=== PATIENT | female | born 1965 | race Caucasian/White ===

== ENCOUNTER 2023-03-11 07:15 | Inpatient (IN) | payer OTHER ==
[2023-03-04 11:51] LABS: BASOPHILS % (AUTO) 0.6 % (0.0-2.0); EOSINOPHILS # (AUTO) 0.1 K/uL (0.0-0.4); HEMATOCRIT 42.5 % (36-48); HEMOGLOBIN 13.6 g/dL (12.0-16.0); LYMPHOCYTES # (AUTO) 1.5 K/uL (1.0-5.5); LYMPHOCYTES % (AUTO) 29.2 % (20.5-51.5); MEAN CORPUSCULAR HEMOGLOBIN 26 pg (27-31); MEAN CORPUSCULAR HGB CONC 32 % (32-36); MEAN CORPUSCULAR VOLUME 81 fL (79.0-98.0); MONOCYTES # (AUTO) 0.3 K/uL (0.0-1.0); MONOCYTES % (AUTO) 6.4 % (1.7-9.3); NEUTROPHILS # (AUTO) 3.1 K/uL (1.8-7.7); NEUTROPHILS % (AUTO) 60.8 % (40.0-70.0); PLATELET COUNT (AUTO) 308 K/uL (130-430); RED BLOOD CELL COUNT(AUTO) 5.27 MIL/uL (4.2-6.2); RED CELL DISTRIBUTION WIDTH 13.9 % (9.0-15.0)
[2023-03-04 12:09] LABS: PROTHROMBIN TIME 10.2 SECS (9.5-12.5)
[2023-03-04 12:34] LABS: ALBUMIN 3.9 g/dL (3.4-4.8); CALCIUM 9.1 mg/dL (8.4-11.0); CREATININE 0.65 mg/dL (0.55-1.30); HEMOGLOBIN A1C 6.51 % (<5.7); POTASSIUM 3.9 mmol/L (3.5-5.1); TOTAL BILIRUBIN 0.5 mg/dL (0.0-1.0)
[~2023-03-11] VITALS: Ht 157.5 cm; Wt 81.6 kg
[2023-03-11] MEDS ORDERED: CELECOXIB 200 MG CAPSULE PO ONE (07:45)
[2023-03-11] MEDS ORDERED: ACETAMINOPHEN 500 MG TABLET PO ONE (07:45)
[2023-03-11] MEDS ORDERED: TRANEXAMIC ACID 1,000 MG/10 ML VIAL IV ONE (07:45)
[2023-03-11] MEDS ORDERED: CEFAZOLIN SOD 2 GM in D5W 50 ML IV ONE (07:45)
[2023-03-11] MEDS ORDERED: oxyCODONE HCL 10 MG TAB.ER.12H PO ONE ×2 (07:45→09:47)
[2023-03-11] MEDS ORDERED: GABAPENTIN 300 MG CAPSULE PO ONE (07:45)
[2023-03-11] MEDS ORDERED: SCOPOLAMINE HYDROBROMIDE 1 MG PATCH .72 H (TRANSDERM-SCOP) TD ONE ×2 (07:45→07:58)
[2023-03-11] MEDS ORDERED: ACETAMINOPHEN 325 MG TABLET ONE (07:58)
[2023-03-11] MEDS ORDERED: CELECOXIB 200 MG CAPSULE ONE (07:59)
[2023-03-11] MEDS ORDERED: GABAPENTIN 300 MG CAPSULE ONE (08:05)
[2023-03-11] MEDS ORDERED: VANCOMYCIN HCL 1000 MG/VIAL IV ONE (10:15)
[2023-03-11] MEDS ORDERED: TRANEXAMIC ACID 1,000 MG/10 ML VIAL ONE (10:15)
[2023-03-11] MEDS ORDERED: ONDANSETRON HCL 4 MG/2 ML VIAL ONE (10:15)
[2023-03-11] MEDS ORDERED: BUPIVACAINE /PF 0.5% 30 ML VIAL ONE (10:15)
[2023-03-11] MEDS ORDERED: MIDAZOLAM HCL/PF 2 MG/2 ML SYRINGE ONE (10:15)
[2023-03-11] MEDS ORDERED: ROPIVACAINE HCL/PF 5 MG/ML 0.5% 30 ML VIAL ONE (10:15)
[2023-03-11] MEDS ORDERED: DEXAMETHASONE SOD PHOSPHATE 4 MG/ML VIAL ONE (10:15)
[2023-03-11] MEDS ORDERED: NS 1000 ML IV.SOLN IV ONE (10:15)
[2023-03-11] MEDS ORDERED: NS IRRIG SOLN 1000 ML IR ONE (10:15)
[2023-03-11] MEDS ORDERED: ePHEDrine sulfate 50 MG/ML VIAL ONE (10:15)
[2023-03-11] MEDS ORDERED: MORPHINE SULFATE 10MG/10ML PF AMP ONE ×2 (10:15)
[2023-03-11] MEDS ORDERED: WATER FOR IRRIGATION,STERILE 1,000 ML IRRIG.SOLN IR ONE (10:15)
[2023-03-11] MEDS ORDERED: METF-379 PO (10:32)
[2023-03-11] MEDS ORDERED: LIP80 PO (10:32)
[2023-03-11] MEDS ORDERED: VIT1CAPS25 PO (10:32)
[2023-03-11] MEDS ORDERED: EZET10TA30 PO (10:32)
[2023-03-11] MEDS ORDERED: VIT1TABL67 PO (10:32)
[2023-03-11] MEDS ORDERED: DIPHENHYDRAMINE HCL 25 MG CAPSULE PO PRN (10:45)
[2023-03-11] MEDS ORDERED: NALOXONE HCL 0.4 MG/ML AMP (NARCAN) IVP PRN ×3 (10:45→11:15)
[2023-03-11] MEDS ORDERED: BISACODYL 10 MG/SUPPOSITORY RC PRN (10:45)
[2023-03-11] MEDS ORDERED: LACTULOSE 20 GM/30 ML UDC PO PRN (10:45)
[2023-03-11] MEDS ORDERED: NALOXONE HCL 2 MG/2 ML SYR IVP PRN (10:45)
[2023-03-11] MEDS ORDERED: METOCLOPRAMIDE HCL 10 MG/2 ML VIAL IVP PRN ×2 (10:45→11:15)
[2023-03-11] MEDS ORDERED: HYDROmorphone 1 MG/ML INJ. CARTRIDGE IVP PRN ×5 (11:00→11:15)
[2023-03-11] MEDS ORDERED: LORATADINE 10 MG TABLET PO PRN (11:00)
[2023-03-11] MEDS ORDERED: traMADol HCL HCL 50 MG TABLET (ULTRAM) PO PRN (11:00)
[2023-03-11] MEDS ORDERED: oxyCODONE HCL 5 MG TABLET PO PRN ×2 (11:00)
[2023-03-11] MEDS ORDERED: ONDANSETRON HCL 4 MG/2 ML VIAL IVP PRN ×2 (11:15→11:45)
[2023-03-11] MEDS ORDERED: hydrALAZINE HCL 20 MG/ML VIAL IVP PRN (11:15)
[2023-03-11] MEDS ORDERED: MIDAZOLAM HCL 2 MG/2 ML VIAL (VERSED) IVP PRN (11:15)
[2023-03-11] MEDS ORDERED: LABETALOL 100 MG/ 20ML VIAL IVP PRN (11:15)
[2023-03-11] MEDS ORDERED: LR 1,000 ML IV SCH (11:15)
[2023-03-11] MEDS ORDERED: DIPHENHYDRAMINE INJ 50 MG/ML VIAL IVP PRN (11:15)
[2023-03-11] MEDS ORDERED: MEPERIDINE HCL/PF 25 MG/ML DISP.SYRIN IVP PRN (11:15)
[2023-03-11 14:12] VITALS: BP_SYST 109; PULSE 82; RESP 17; TEMP 96.8; O2SAT 98
[2023-03-11 15:04] VITALS: BP_SYST 109; PULSE 82; RESP 16; TEMP 96.8; O2SAT 98
[2023-03-11] MEDS: KETOROLAC TROMETHAMINE 10 MG TABLET (TORADOL) PO SCH ×2 (15:21→22:16)
[2023-03-11] MEDS: ACETAMINOPHEN 500 MG TABLET PO SCH ×2 (15:21→22:17)
[2023-03-11 16:42] VITALS: BP_SYST 102; PULSE 90; RESP 16; TEMP 97.8; O2SAT 97
[2023-03-11] MEDS: ceFAZolin SODIUM 2 GM in D5W 100 ML IV SCH (16:49)
[2023-03-11 19:00] VITALS: BP_SYST 114; PULSE 92; RESP 16; TEMP 96.6; O2SAT 94; O2SAT 98
[2023-03-11 20:00] VITALS: BP_SYST 114; PULSE 92; RESP 16; TEMP 96.6; O2SAT 94
[2023-03-11] MEDS ORDERED: ATORVASTATIN 20 MG TABLET PO SCH (21:00)
[2023-03-11] MEDS ORDERED: EZETIMIBE 10 MG TABLET PO SCH (21:00)
[2023-03-11] MEDS: SENNOSIDES/DOCUSATE SODIUM 1 TAB TABLET(SENOKOT-S) PO SCH (22:13)
[2023-03-11] MEDS: metFORMIN HCL 500 MG TABLET PO SCH (22:13)
[2023-03-12] MEDS: ceFAZolin SODIUM 2 GM in D5W 100 ML IV SCH ×2 (01:54→08:20)
[2023-03-12 02:04] VITALS: BP_SYST 106; PULSE 80; RESP 18; TEMP 98.3; O2SAT 95
[2023-03-12 05:02] LABS: BASOPHILS % (AUTO) 0.1 % (0.0-2.0); HEMATOCRIT 38.3 % (36-48); HEMOGLOBIN 12.1 g/dL (12.0-16.0); LYMPHOCYTES # (AUTO) 0.6 K/uL (1.0-5.5); LYMPHOCYTES % (AUTO) 5.5 % (20.5-51.5); MEAN CORPUSCULAR HEMOGLOBIN 25 pg (27-31); MEAN CORPUSCULAR HGB CONC 32 % (32-36); MEAN CORPUSCULAR VOLUME 80 fL (79.0-98.0); MONOCYTES # (AUTO) 0.5 K/uL (0.0-1.0); MONOCYTES % (AUTO) 4.6 % (1.7-9.3); NEUTROPHILS # (AUTO) 10.3 K/uL (1.8-7.7); NEUTROPHILS % (AUTO) 89.8 % (40.0-70.0); PLATELET COUNT (AUTO) 266 K/uL (130-430); RED BLOOD CELL COUNT(AUTO) 4.78 MIL/uL (4.2-6.2); RED CELL DISTRIBUTION WIDTH 13.7 % (9.0-15.0); WHITE BLOOD COUNT (AUTO) 11.5 K/uL (4.8-10.8)
[2023-03-12 05:26] LABS: ALBUMIN 3.3 g/dL (3.4-4.8); CALCIUM 9.5 mg/dL (8.4-11.0); CREATININE 0.8 mg/dL (0.55-1.30); TOTAL BILIRUBIN 0.4 mg/dL (0.0-1.0); TOTAL PROTEIN, SERUM 6.3 g/dL (6.4-8.3)
[2023-03-12] MEDS: ACETAMINOPHEN 500 MG TABLET PO SCH ×2 (05:49→13:26)
[2023-03-12] MEDS: KETOROLAC TROMETHAMINE 10 MG TABLET (TORADOL) PO SCH (05:50)
[2023-03-12 08:00] VITALS: BP_SYST 98; PULSE 78; RESP 18; TEMP 97.9; O2SAT 98
[2023-03-12] MEDS: metFORMIN HCL 500 MG TABLET PO SCH (08:20)
[2023-03-12] MEDS: SENNOSIDES/DOCUSATE SODIUM 1 TAB TABLET(SENOKOT-S) PO SCH (08:20)
[2023-03-12] MEDS ORDERED: ASPIRIN 81 MG TAB.CHEW PO SCH (09:00)
[2023-03-12] MEDS ORDERED: ASA81 PO (09:21)
[2023-03-12] MEDS ORDERED: CELECOXIB 200 MG CAPSULE PO SCH (11:00)
[2023-03-12 12:00] VITALS: BP_SYST 110; PULSE 82; RESP 16; TEMP 97.3; O2SAT 98
[2023-03-12 13:42] VITALS: BP_SYST 112; PULSE 85; RESP 18; TEMP 98.1; O2SAT 95
== END 2023-03-12 14:55 | disposition home health service (06) | DRG 470 ==
LOC: SMU 07:15
PROVIDERS: ADMIT Student in an Organized Health Care Education/Training Program; ATTEND Student in an Organized Health Care Education/Training Program
PROC: 0SRD0J9 Replacement of Left Knee Joint with Synthetic Substitute, Cemented, Open Approach (ICD-10-PCS; principal; 2023-03-11 10:25)
DX: M17.12 Unilateral primary osteoarthritis, left knee (principal)
CPT/HCPCS: 36415; 71046-TC; 73560-TC; 80053; 82948; 82962; 83037; 85025; 85610-TC; 85730-TC; 87081; 88305; 88311; 93005; 96379; 97110-GP; 97116-GP; 97530-GP; C1713; C1776; J0690; J1100; J2274; J2405; J3370; J3465; J3490; J7030; J7060